=== PATIENT | female | born 1980 | race African-American/Black ===

== ENCOUNTER 2016-05-09 19:59 | Emergency (ER) | payer OTHER ==
[~2016-05-09] VITALS: Ht 172.7 cm; Wt 76.2 kg
[~2016-05-09 19:59] MED LIST: ALPRAZOLAM0.5 MG PO; BACTRIM,SEPT1 TABLET PO; CHILD ASPIRIN81 M1 PO; DIFLUCAN200 MG PO; ERYTHROMYC1 APPLICAT LEFT EYE; FLAGYL500 MG PO; FLEXERIL10 MG PO; HYDROCODON-ACE1 EAC7 PO; IBUPROFEN400 MG PO; IBUPROFEN800 MG PO; KEFLEX500 MG PO; LANTUS 10100 UNITS/ SC; LANTUS 3 M100 UNITS1 SC; LOVENOX40 MG/0.4 SC; METFORMIN HCL1000 MG PO; METHERGINE0.2 MG PO; MOTRIN400 MG PO; NAPROXEN500 MG PO; NORCO 5/3251 TABLET PO; NOVOLOG 10100 UNITS/ SC; NOVOLOG PE100 UNITS/ SC; PERCOCET 5/31 TABLET PO; TRAMADOL HCL50 MG PO; XANAX0.5 MG PO; ZOFRAN ODT8 MG PO
[2016-05-09 22:04] LABS: INTERNAL CONTROL VALID? YES
[2016-05-09] MEDS ORDERED: MOTRIN600 MG PO (22:19)
[2016-05-09 22:27] VITALS: BP 139/89
[2016-05-10 14:52] LABS: CHLAMYDIA TRACHOMATIS NEGATIVE; NEISSERIA GONORRHOEAE POSITIVE
== END 2016-05-09 22:28 | disposition home or self-care (01) ==
LOC: EME 19:59
PROVIDERS: Emergency Medicine
DX: Z04.41 Encounter for examination and observation following alleged adult rape (principal); M54.5 Low back pain; G89.29 Other chronic pain; E11.9 Type 2 diabetes mellitus without complications; Z79.4 Long term (current) use of insulin
CPT/HCPCS: 84703; 87491; 87591; 99281; 99285; J1885

== ENCOUNTER 2016-07-03 11:45 | Observation (INO) | payer OTHER ==
[~2016-07-03] VITALS: Ht 172.7 cm; Wt 69.1 kg
[~2016-07-03 11:45] MED LIST changes: +MOTRIN600 MG PO
[2016-07-03 13:08] LABS: EOSINOPHIL (%) 1.9 % (0-5); EOSINOPHIL COUNT 0.1 K/uL (0-0.3); HEMATOCRIT 37.2 % (36.0-46.0); LYMPHOCYTE COUNT 2.5 K/uL (1.0-2.8); MCH 30.8 PG (29.0-34.0); MCHC 36.6 G/DL (30.0-36.0); MCV 84.4 FL (83-99); MEAN PLAT.VOLUME 11.3 uM^3 (9.5-12.4); MONOCYTE (%) 7.6 % (3-12); MONOCYTE COUNT 0.4 K/uL (0-0.8); NEUTROPHIL (%) 46.2 % (45-76); NEUTROPHIL COUNT 2.7 K/uL (1.8-6.4); PLATELET COUNT 269 K/uL (156-360); RBC DIS.WIDTH-CV 11.5 % (11.8-14.6); RBC DIS.WIDTH-SD 34.5 % (39-53); RED BLOOD COUNT 4.41 M/uL (3.80-5.20); WHITE BLOOD COUNT 5.8 K/uL (4.1-10.2)
[2016-07-03 13:11] LABS: CARBON DIOXIDE (BICARBONATE) 37.1 MEQ/L (20-31)
[2016-07-03 14:42] LABS: CHLORIDE 90 mEq/L (99-109); POTASSIUM 4.7 mEq/L (3.7-5.4); SODIUM 128 mEq/L (136-147)
[2016-07-03 14:44] LABS: GLUCOSE 754 mg/dL (70-99)
[2016-07-03 14:45] LABS: ANION GAP 8 MEQ/L (2-14)
[2016-07-03 14:48] LABS: GFR ESTIMATE (CALCULATED) > 59 mL/min/; UREA NITROGEN (BUN) 9 mg/dL (9-23)
[2016-07-03] MEDS ORDERED: PERCOCET 5/31 TABLET PO (15:59)
[2016-07-03] MEDS ORDERED: HAIR-SKIN-NAIL1 EACH PO (16:00)
[2016-07-03 19:00] VITALS: BP 121/78
[2016-07-03 19:29] VITALS: BP 126/69
[2016-07-03 19:51] LABS: Estimated Average Glucose 430 mg/dL (70-123)
[2016-07-03 21:46] LABS: HEMOGLOBIN A1c (GLYCOHEMOGLOB) 16.6 % HGB (Below 5.7)
[2016-07-03 23:37] LABS: ADD MIUA? YES; BILIRUBIN NEGATIVE; BLOOD NEGATIVE; COLOR YELLOW ((YELLOW)); GLUCOSE (STRIP) >=500; KETONES NEGATIVE; LEUKOCYTES TRACE; NITRITE POSITIVE; PROTEIN (STRIP) NEGATIVE; SPECIFIC GRAVITY 1.031 (1.000-1.030); UROBILINOGEN 0.2 MG/DL (0.2-1.0)
[2016-07-03 23:46] LABS: BACTERIA 2+ /HPF; EPITHELIAL CELLS RARE /HPF; MUCUS TRACE /LPF; RED BLOOD CELLS TNTC /HPF (0-5); UCUL ADDED? NO; WHITE BLOOD CELLS 0-5 /HPF (0-5)
[2016-07-04] VITALS: BP 126/74
[2016-07-04 00:35] LABS: CARBON DIOXIDE (BICARBONATE) 31.9 MEQ/L (20-31)
[2016-07-04 00:42] LABS: CHLORIDE 94 mEq/L (99-109); POTASSIUM 4.1 mEq/L (3.7-5.4); SODIUM 127 mEq/L (136-147)
[2016-07-04 00:43] LABS: MAGNESIUM 1.7 mg/dL (1.3-2.7)
[2016-07-04 00:46] LABS: ANION GAP 6 MEQ/L (2-14)
[2016-07-04 00:47] LABS: TOTAL BILIRUBIN 0.2 mg/dL (0.0-1.0)
[2016-07-04 00:48] LABS: ALKALINE PHOSPHATASE 89 IU/L (3-129)
[2016-07-04 00:49] LABS: GFR ESTIMATE (CALCULATED) > 59 mL/min/; GLUCOSE 709 mg/dL (70-99)
[2016-07-04 00:50] LABS: UREA NITROGEN (BUN) 10 mg/dL (9-23)
[2016-07-04 03:56] VITALS: BP 118/66
[2016-07-04 06:15] LABS: POINT-OF-CARE METER ID UU13113831
[2016-07-04 06:33] LABS: ANION GAP 5 MEQ/L (2-14); CHLORIDE 102 MEQ/L (99-109); POTASSIUM 3.8 MEQ/L (3.7-5.4); SAMPLE HEMOLYSIS CHECK 0; SAMPLE ICTERIC CHECK 0; SAMPLE LIPEMIA CHECK 0; UREA NITROGEN (BUN) 9 mg/dL (9-23)
[2016-07-04 06:40] LABS: GFR ESTIMATE (CALCULATED) > 59 mL/min/; GLUCOSE 101 mg/dL (70-99); SODIUM 135 MEQ/L (136-147)
[2016-07-04 07:14] LABS: HEMATOCRIT 50.4 % (36.0-46.0); MCH 29.9 PG (29.0-34.0); MCHC 33.9 G/DL (30.0-36.0); MCV 88.1 FL (83-99); RBC DIS.WIDTH-SD 37.9 % (39-53); WHITE BLOOD COUNT 4.9 K/uL (4.1-10.2)
[2016-07-04 07:17] VITALS: BP 112/61
[2016-07-04 07:17] LABS: RED BLOOD COUNT 5.72 M/uL (3.80-5.20)
[2016-07-04 07:56] LABS: PLATELET COUNT UNABLE TO REPORT K/uL (156-360)
[2016-07-04 08:53] LABS: EOSINOPHIL (%) 2.4 % (0-5); EOSINOPHIL COUNT 0.2 K/uL (0-0.3); HEMATOCRIT 32.5 % (36.0-46.0); LYMPHOCYTE COUNT 3.3 K/uL (1.0-2.8); MCH 30.8 PG (29.0-34.0); MCHC 35.7 G/DL (30.0-36.0); MCV 86.2 FL (83-99); MONOCYTE (%) 7.2 % (3-12); MONOCYTE COUNT 0.5 K/uL (0-0.8); NEUTROPHIL (%) 36.9 % (45-76); NEUTROPHIL COUNT 2.3 K/uL (1.8-6.4); RBC DIS.WIDTH-CV 11.8 % (11.8-14.6); RBC DIS.WIDTH-SD 36.7 % (39-53); WHITE BLOOD COUNT 6.3 K/uL (4.1-10.2)
[2016-07-04 09:02] LABS: RED BLOOD COUNT 3.77 M/uL (3.80-5.20)
[2016-07-04 09:26] LABS: PLATELET COUNT UNABLE TO REPORT K/uL (156-360); USER ID TLW
[2016-07-04 09:59] LABS: POINT-OF-CARE METER ID UU13113702
[2016-07-04 09:59] LABS: POINT-OF-CARE METER ID UU13113702
[2016-07-04 10:01] LABS: POINT-OF-CARE METER ID UU13113831
[2016-07-04 10:14] LABS: POINT-OF-CARE METER ID UU13113831
[2016-07-04 12:44] LABS: POINT-OF-CARE METER ID UU13113700
[2016-07-04 15:25] VITALS: BP 98/60
[2016-07-04] MEDS ORDERED: LYRICA100 MG PO (15:27)
[2016-07-04] MEDS ORDERED: LEVEMIR100 UNIT/2 SC (15:29)
[2016-07-04] MEDS ORDERED: NOVOLOG 10100 UNITS/ SC ×2 (15:29→15:30)
[2016-07-04] MEDS ORDERED: LEVEMIR FL100 UNIT/1 SC (16:43)
[2016-07-04] MEDS ORDERED: NOVOLOG PE100 UNITS/ SC (16:44)
== END 2016-07-04 16:55 | disposition home or self-care (01) ==
LOC: EME 11:45 → EDOF 15:36 → 5WEST 15:36 → EDOF 15:36 → 5WEST 19:19
PROVIDERS: Emergency Medicine; Physician Assistant; Physician Assistant Medical; Student in an Organized Health Care Education/Training Program
DX: E10.43 Type 1 diabetes mellitus with diabetic autonomic (poly)neuropathy (principal); E10.65 Type 1 diabetes mellitus with hyperglycemia; M79.671 Pain in right foot; M79.672 Pain in left foot; Z91.19 Patient's noncompliance with other medical treatment and regimen; I10 Essential (primary) hypertension; F31.9 Bipolar disorder, unspecified; G89.29 Other chronic pain; G43.909 Migraine, unspecified, not intractable, without status migrainosus; E87.1 Hypo-osmolality and hyponatremia; E86.0 Dehydration
CPT/HCPCS: 73630; 80048; 80053; 81003; 82010; 82803; 82948; 83036; 83735; 85025; 85027; 99281; 99285; G0378; J1815; J2270; J3480; J7030

== ENCOUNTER 2016-08-25 15:47 | Emergency (ER) | payer OTHER ==
[~2016-08-25] VITALS: Ht 172.7 cm; Wt 65.5 kg
[~2016-08-25 15:47] MED LIST changes: +HAIR-SKIN-NAIL1 EACH PO; +LEVEMIR FL100 UNIT/1 SC; +LEVEMIR100 UNIT/2 SC; +LYRICA100 MG PO
[2016-08-25 16:57] LABS: EOSINOPHIL (%) 1.1 % (0-5); EOSINOPHIL COUNT 0.1 K/uL (0-0.3); HEMATOCRIT 40.2 % (36.0-46.0); IMMATURE GRANULOCYTE (%) 0.2 % (0.0-0.7); INSTRUMENT ABS NEUTROPHIL CT 5.1 K/uL; LYMPHOCYTE COUNT 2.5 K/uL (1.0-2.8); MCH 30.5 PG (29.0-34.0); MCHC 34.8 G/DL (30.0-36.0); MCV 87.6 FL (83-99); MEAN PLAT.VOLUME 10.7 uM^3 (9.5-12.4); MONOCYTE (%) 3.5 % (3-12); MONOCYTE COUNT 0.3 K/uL (0-0.8); NEUTROPHIL COUNT 5.1 K/uL (1.8-6.4); PLATELET COUNT 306 K/uL (156-360); RBC DIS.WIDTH-CV 11.1 % (11.8-14.6); RBC DIS.WIDTH-SD 35.6 % (39-53); RED BLOOD COUNT 4.59 M/uL (3.80-5.20)
[2016-08-25 17:11] LABS: CHLORIDE 94 mEq/L (99-109); POTASSIUM 3.9 mEq/L (3.7-5.4); SODIUM 129 mEq/L (136-147)
[2016-08-25 17:14] LABS: ANION GAP 8 MEQ/L (2-14)
[2016-08-25 17:16] LABS: GFR ESTIMATE (CALCULATED) > 59 mL/min/
[2016-08-25 17:17] LABS: UREA NITROGEN (BUN) 5 mg/dL (9-23)
[2016-08-25 17:25] LABS: QUANTITATIVE HCG < 4.0 MIU/ML
[2016-08-25 17:30] LABS: GLUCOSE 617 mg/dL (70-99)
[2016-08-25] MEDS ORDERED: LANTUS 10100 UNITS/ SC (18:19)
[2016-08-25] MEDS ORDERED: HUMULIN R100 UNITS/ SC (18:19)
[2016-08-25] MEDS ORDERED: ZITHROMAX Z-PA250 MG PO (18:19)
[2016-08-25 18:33] VITALS: BP 127/83
[2016-08-26 11:40] LABS: POINT-OF-CARE METER ID UU13113702
== END 2016-08-25 18:35 | disposition home or self-care (01) ==
LOC: EME 15:47
PROVIDERS: Emergency Medicine
DX: E11.65 Type 2 diabetes mellitus with hyperglycemia (principal); T38.3X6A Underdosing of insulin and oral hypoglycemic [antidiabetic] drugs, initial encounter; J02.9 Acute pharyngitis, unspecified; I10 Essential (primary) hypertension; Z91.128 Patient's intentional underdosing of medication regimen for other reason; Z88.0 Allergy status to penicillin; Z79.4 Long term (current) use of insulin
CPT/HCPCS: 80048; 82948; 84702; 85025; 99281; 99284; J7030

== ENCOUNTER 2016-09-29 10:00 | Inpatient (IN) | payer OTHER ==
[~2016-09-29] VITALS: Ht 165.1 cm; Wt 57.8 kg
[~2016-09-29 10:00] MED LIST changes: +HUMULIN R100 UNITS/ SC; +ZITHROMAX Z-PA250 MG PO
[2016-09-29 10:48] LABS: EOSINOPHIL (%) 0 % (0-5); HEMATOCRIT 44.6 % (36.0-46.0); IMMATURE GRANULOCYTE (%) 0.9 % (0.0-0.7); IMMATURE GRANULOCYTE COUNT 0.1 K/uL; INSTRUMENT ABS NEUTROPHIL CT 12.4 K/uL; LYMPHOCYTE COUNT 0.9 K/uL (1.0-2.8); MCH 30.8 PG (29.0-34.0); MCHC 33.2 G/DL (30.0-36.0); MCV 92.7 FL (83-99); MEAN PLAT.VOLUME 10.9 uM^3 (9.5-12.4); MONOCYTE (%) 3.3 % (3-12); MONOCYTE COUNT 0.5 K/uL (0-0.8); NEUTROPHIL (%) 89.4 % (45-76); NEUTROPHIL COUNT 12.4 K/uL (1.8-6.4); PLATELET COUNT 323 K/uL (156-360); RBC DIS.WIDTH-CV 11.8 % (11.8-14.6); RBC DIS.WIDTH-SD 40.1 % (39-53); RED BLOOD COUNT 4.81 M/uL (3.80-5.20); WHITE BLOOD COUNT 13.9 K/uL (4.1-10.2)
[2016-09-29 11:03] LABS: CHLORIDE 91 mEq/L (99-109); SODIUM 130 mEq/L (136-147)
[2016-09-29 11:06] LABS: ANION GAP 19 MEQ/L (2-14)
[2016-09-29 11:09] LABS: UREA NITROGEN (BUN) 13 mg/dL (9-23)
[2016-09-29 11:10] LABS: GLUCOSE 816 mg/dL (70-99)
[2016-09-29 11:11] LABS: CARBON DIOXIDE (BICARBONATE) 26.8 MEQ/L (20-31)
[2016-09-29 11:11] LABS: TROP-I INTERPRETATION NEGATIVE; TROPONIN-I < 0.01 ng/mL (0.0-0.30)
[2016-09-29 11:16] LABS: QUANTITATIVE HCG < 4.0 MIU/ML
[2016-09-29 11:25] LABS: GFR ESTIMATE (CALCULATED) 51 mL/min/
[2016-09-29 11:30] LABS: SALICYLATE < 5.0 MG/DL (15-30)
[2016-09-29 14:27] LABS: CHLORIDE 106 mEq/L (99-109); GLUCOSE 306 mg/dL (70-99); POTASSIUM 3.5 mEq/L (3.7-5.4); SODIUM 140 mEq/L (136-147)
[2016-09-29 14:28] LABS: POINT-OF-CARE METER ID UU13113702
[2016-09-29 14:28] LABS: ANION GAP 9 MEQ/L (2-14)
[2016-09-29 14:30] LABS: GFR ESTIMATE (CALCULATED) > 59 mL/min/
[2016-09-29 14:31] LABS: UREA NITROGEN (BUN) 14 mg/dL (9-23)
[2016-09-29 15:01] LABS: POINT-OF-CARE METER ID UU13113702
[2016-09-29 16:08] LABS: BASE EXCESS 1.1 mEq/L (-3 to +3); BICARBONATE 27.1 mEq/L (22-26); CARBOXY HGB 2.7 % (0-5); COMMENTS - BLOOD GASES +C; FI02 21 %; METHEMOGLOBIN 1.1 % (0-1.5); PCO2 48 mm Hg (35-45); PO2 87 mm Hg (80-100); SITE RB; TOTAL RESP RATE 18 resp/min; pH 7.36 (7.35-7.45)
[2016-09-29] MEDS ORDERED: NOVOLOG 10100 UNITS/ SC ×2 (16:19→16:21)
[2016-09-29] MEDS ORDERED: LANTUS 10100 UNITS/ SC (16:20)
[2016-09-29] MEDS ORDERED: PERCOCET 5/31 TABLET PO (16:22)
[2016-09-29 16:25] LABS: POINT-OF-CARE METER ID UU13113702
[2016-09-29] MEDS ORDERED: SEROQUEL300 MG PO (16:28)
[2016-09-29 18:50] VITALS: BP 107/61
[2016-09-29 19:46] LABS: TROP-I INTERPRETATION NEGATIVE; TROPONIN-I 0.09 ng/mL (0.0-0.30)
[2016-09-29 20:00] VITALS: BP 108/64
[2016-09-29 21:07] LABS: POINT-OF-CARE METER ID UU13113831
[2016-09-29 23:42] VITALS: BP 90/54
[2016-09-30 03:06] VITALS: BP 90/56
[2016-09-30 03:12] LABS: TROP-I INTERPRETATION NEGATIVE; TROPONIN-I 0.09 ng/mL (0.0-0.30)
[2016-09-30 07:22] VITALS: BP 111/61
[2016-09-30 07:26] LABS: MCH 30.8 PG (29.0-34.0); MCHC 34.9 G/DL (30.0-36.0); MEAN PLAT.VOLUME 10.4 uM^3 (9.5-12.4); PLATELET COUNT 335 K/uL (156-360); RBC DIS.WIDTH-CV 11.6 % (11.8-14.6); RBC DIS.WIDTH-SD 37.2 % (39-53); RED BLOOD COUNT 3.96 M/uL (3.80-5.20); WHITE BLOOD COUNT 9.2 K/uL (4.1-10.2)
[2016-09-30 07:39] LABS: MCV 88.4 FL (83-99)
[2016-09-30 08:05] LABS: ANION GAP 7 MEQ/L (2-14); CHLORIDE 106 MEQ/L (99-109); GFR ESTIMATE (CALCULATED) > 59 mL/min/; POTASSIUM 3.2 MEQ/L (3.7-5.4); SAMPLE HEMOLYSIS CHECK 0; SAMPLE ICTERIC CHECK 0; SAMPLE LIPEMIA CHECK 0; SODIUM 141 MEQ/L (136-147); UREA NITROGEN (BUN) 9 mg/dL (9-23)
[2016-09-30 08:08] LABS: GLUCOSE 35 mg/dL (70-99)
[2016-09-30 08:35] LABS: Estimated Average Glucose 418 mg/dL (70-123)
[2016-09-30 08:36] LABS: HEMOGLOBIN A1c (GLYCOHEMOGLOB) 16.2 % HGB (Below 5.7)
[2016-09-30 08:59] LABS: POINT-OF-CARE METER ID UU14162513
[2016-09-30 11:32] LABS: GLUCOSE 95 mg/dL (70-99)
[2016-09-30 11:36] VITALS: BP 91/51
[2016-09-30 12:04] LABS: POINT-OF-CARE METER ID UU14162513
[2016-09-30 12:36] LABS: POINT-OF-CARE METER ID UU13113700
[2016-09-30 14:49] LABS: POINT-OF-CARE METER ID UU13113700
[2016-09-30 15:25] VITALS: BP 104/65
[2016-09-30 16:05] LABS: POINT-OF-CARE METER ID UU13113700
[2016-09-30 16:07] LABS: POINT-OF-CARE METER ID UU14162513
[2016-09-30 16:18] LABS: POINT-OF-CARE METER ID UU13113702
[2016-09-30 16:18] LABS: POINT-OF-CARE METER ID UU13113702
[2016-09-30 17:33] LABS: POINT-OF-CARE METER ID UU14162513
[2016-09-30 19:52] VITALS: BP 113/64
[2016-09-30 21:45] LABS: POINT-OF-CARE METER ID UU14162513
[2016-09-30 23:48] VITALS: BP 115/60
[2016-10-01 03:11] LABS: POINT-OF-CARE METER ID UU14162513
[2016-10-01 04:54] VITALS: BP 106/53
[2016-10-01 05:26] LABS: POINT-OF-CARE METER ID UU13113700
[2016-10-01 05:26] LABS: POINT-OF-CARE METER ID UU13113700
[2016-10-01 05:40] LABS: GLUCOSE 51 mg/dL (70-99)
[2016-10-01 06:08] LABS: POINT-OF-CARE METER ID UU13113700
[2016-10-01 07:29] VITALS: BP 98/54
[2016-10-01 09:41] LABS: EOSINOPHIL (%) 1.8 % (0-5); EOSINOPHIL COUNT 0.1 K/uL (0-0.3); IMMATURE GRANULOCYTE (%) 0.3 % (0.0-0.7); INSTRUMENT ABS NEUTROPHIL CT 2.5 K/uL; LYMPHOCYTE COUNT 3.7 K/uL (1.0-2.8); MCH 31.6 PG (29.0-34.0); MCHC 34.1 G/DL (30.0-36.0); MEAN PLAT.VOLUME 10.9 uM^3 (9.5-12.4); MONOCYTE (%) 6.2 % (3-12); MONOCYTE COUNT 0.4 K/uL (0-0.8); NEUTROPHIL (%) 37.3 % (45-76); NEUTROPHIL COUNT 2.5 K/uL (1.8-6.4); PLATELET COUNT 276 K/uL (156-360); RBC DIS.WIDTH-CV 11.9 % (11.8-14.6); RBC DIS.WIDTH-SD 40.2 % (39-53); RED BLOOD COUNT 3.99 M/uL (3.80-5.20); WHITE BLOOD COUNT 6.8 K/uL (4.1-10.2)
[2016-10-01 09:42] LABS: MCV 92.7 FL (83-99)
[2016-10-01 09:55] LABS: CHLORIDE 105 mEq/L (99-109); POTASSIUM 3.6 mEq/L (3.7-5.4); SODIUM 136 mEq/L (136-147)
[2016-10-01 09:56] LABS: MAGNESIUM 1.6 mg/dL (1.3-2.7)
[2016-10-01 09:58] LABS: ANION GAP 6 MEQ/L (2-14)
[2016-10-01 10:01] LABS: GFR ESTIMATE (CALCULATED) > 59 mL/min/; UREA NITROGEN (BUN) 9 mg/dL (9-23)
[2016-10-01 11:21] LABS: POINT-OF-CARE METER ID UU13113700
[2016-10-01 11:49] VITALS: BP 103/67
[2016-10-01 14:14] LABS: POINT-OF-CARE METER ID UU13113700
[2016-10-01 15:37] VITALS: BP 110/60
[2016-10-01 17:20] LABS: POINT-OF-CARE METER ID UU13113700
[2016-10-01 20:19] LABS: POINT-OF-CARE METER ID UU13113700
[2016-10-01 23:41] LABS: POINT-OF-CARE METER ID UU13113700
[2016-10-02 00:13] VITALS: BP 115/59
[2016-10-02 02:34] LABS: POINT-OF-CARE METER ID UU13113700
[2016-10-02 04:30] VITALS: BP 114/67
[2016-10-02 06:20] LABS: POINT-OF-CARE METER ID UU13113700
[2016-10-02 07:19] VITALS: BP 109/73
[2016-10-02] MEDS ORDERED: NOVOLOG 10100 UNITS/ SC (09:04)
[2016-10-02] MEDS ORDERED: LANTUS 10100 UNITS/ SC (09:04)
== END 2016-10-02 10:31 | disposition home or self-care (01) | DRG 639 ==
LOC: EME 10:00 → EDOF 13:31 → 5WEST 13:31 → EDOF 15:55 → 5WEST 18:06
PROVIDERS: Emergency Medicine; Internal Medicine; Internal Medicine Critical Care Medicine; Nurse Practitioner Adult Health; Physician Assistant Medical
DX: E10.10 Type 1 diabetes mellitus with ketoacidosis without coma (principal); I10 Essential (primary) hypertension; F11.10 Opioid abuse, uncomplicated; F31.9 Bipolar disorder, unspecified; G89.29 Other chronic pain; Z91.14 Patient's other noncompliance with medication regimen; Z79.4 Long term (current) use of insulin; Z88.0 Allergy status to penicillin
CPT/HCPCS: 36600; 80048; 80048 91; 81003; 82010; 82803; 82947 91; 82948; 83036; 83735; 84484; 84702; 84999; 85025; 85027; 93005; 99281; 99285; G0378; G0480; J1650; J1815; J2310; J7030; J7050

== ENCOUNTER 2017-01-14 12:40 | Observation (INO) | payer OTHER ==
[~2017-01-14] VITALS: Ht 172.7 cm; Wt 61.0 kg
[~2017-01-14 12:40] MED LIST changes: +SEROQUEL300 MG PO
[2017-01-14 13:21] LABS: EOSINOPHIL (%) 1.8 % (0-5); EOSINOPHIL COUNT 0.1 K/uL (0-0.3); IMMATURE GRANULOCYTE (%) 0.2 % (0.0-0.7); INSTRUMENT ABS NEUTROPHIL CT 2.3 K/uL; LYMPHOCYTE COUNT 2.4 K/uL (1.0-2.8); MCHC 35.3 G/DL (30.0-36.0); MCV 85.1 FL (83-99); MEAN PLAT.VOLUME 10.2 uM^3 (9.5-12.4); MONOCYTE (%) 5.3 % (3-12); MONOCYTE COUNT 0.3 K/uL (0-0.8); NEUTROPHIL (%) 44.8 % (45-76); NEUTROPHIL COUNT 2.3 K/uL (1.8-6.4); PLATELET COUNT 265 K/uL (156-360); RBC DIS.WIDTH-CV 11.6 % (11.8-14.6); RBC DIS.WIDTH-SD 35.6 % (39-53); RED BLOOD COUNT 4.23 M/uL (3.80-5.20); WHITE BLOOD COUNT 5.1 K/uL (4.1-10.2)
[2017-01-14 13:25] LABS: CARBON DIOXIDE (BICARBONATE) 33.6 MEQ/L (20-31)
[2017-01-14 13:31] LABS: CHLORIDE 95 mEq/L (99-109); SODIUM 131 mEq/L (136-147)
[2017-01-14 13:34] LABS: ANION GAP 10 MEQ/L (2-14)
[2017-01-14 13:36] LABS: GFR ESTIMATE (CALCULATED) > 59 mL/min/
[2017-01-14 13:37] LABS: UREA NITROGEN (BUN) 7 mg/dL (9-23)
[2017-01-14 13:46] LABS: QUANTITATIVE HCG < 4.0 MIU/ML
[2017-01-14 13:50] LABS: GLUCOSE 749 mg/dL (70-99)
[2017-01-14 14:05] LABS: SAMPLE HEMOLYSIS CHECK 0; SAMPLE ICTERIC CHECK 0; SAMPLE LIPEMIA CHECK 0
[2017-01-14] MEDS ORDERED: LANTUS 10100 UNITS/ SC (14:32)
[2017-01-14] MEDS ORDERED: XANAX0.5 MG PO (14:33)
[2017-01-14] MEDS ORDERED: NOVOLOG 10100 UNITS/ SC (14:33)
[2017-01-14] MEDS ORDERED: ULTRAM50 MG PO (14:34)
[2017-01-14] MEDS ORDERED: LYRICA50 MG PO (14:37)
[2017-01-14 15:10] LABS: POINT-OF-CARE METER ID UU14100415
[2017-01-14 16:29] LABS: POINT-OF-CARE METER ID UU14100415
[2017-01-14 17:49] LABS: ADD MIUA? NO; BILIRUBIN NEGATIVE; BLOOD NEGATIVE; COLOR STRAW ((YELLOW)); GLUCOSE (STRIP) >=500; KETONES NEGATIVE; LEUKOCYTES NEGATIVE; NITRITE NEGATIVE; PROTEIN (STRIP) 30; SPECIFIC GRAVITY 1.033 (1.000-1.030); UROBILINOGEN 0.2 MG/DL (0.2-1.0)
[2017-01-14 18:02] VITALS: BP 137/75
[2017-01-14 21:03] VITALS: BP 134/69
[2017-01-14 21:12] LABS: POINT-OF-CARE METER ID UU14100415
[2017-01-14 21:12] LABS: POINT-OF-CARE METER ID UU14100415
[2017-01-14 21:13] LABS: POINT-OF-CARE METER ID UU14162513
[2017-01-14 23:36] LABS: POINT-OF-CARE METER ID UU14162513
[2017-01-15 00:12] VITALS: BP 105/60
[2017-01-15 04:00] VITALS: BP 107/58
[2017-01-15 05:49] LABS: HEMATOCRIT 32.3 % (36.0-46.0); MCH 30.2 PG (29.0-34.0); MCHC 35.3 G/DL (30.0-36.0); MCV 85.7 FL (83-99); MEAN PLAT.VOLUME 10.3 uM^3 (9.5-12.4); PLATELET COUNT 254 K/uL (156-360); RBC DIS.WIDTH-CV 11.8 % (11.8-14.6); RBC DIS.WIDTH-SD 36.9 % (39-53); RED BLOOD COUNT 3.77 M/uL (3.80-5.20); WHITE BLOOD COUNT 6.3 K/uL (4.1-10.2)
[2017-01-15 06:14] LABS: ANION GAP 5 MEQ/L (2-14); GFR ESTIMATE (CALCULATED) > 59 mL/min/; SAMPLE HEMOLYSIS CHECK 0; SAMPLE ICTERIC CHECK 0; SAMPLE LIPEMIA CHECK 0; UREA NITROGEN (BUN) 10 mg/dL (9-23)
[2017-01-15 06:16] LABS: CHLORIDE 109 MEQ/L (99-109); GLUCOSE 60 mg/dL (70-99); POTASSIUM 3.9 MEQ/L (3.7-5.4); SODIUM 141 MEQ/L (136-147)
[2017-01-15 06:52] LABS: POINT-OF-CARE METER ID UU14162513
[2017-01-15 07:35] LABS: POINT-OF-CARE METER ID UU14162513
[2017-01-15 08:35] VITALS: BP 101/61
[2017-01-15 10:13] LABS: POINT-OF-CARE METER ID UU14162513
[2017-01-15 11:43] LABS: POINT-OF-CARE METER ID UU14162513
[2017-01-15 12:21] VITALS: BP 102/63
[2017-01-15 12:24] LABS: POINT-OF-CARE METER ID UU13113700
[2017-01-15 12:58] LABS: AMPHETAMINES QUANT VALUE 0 NG/ML; BARBITUATES QUANT VALUE 0 NG/ML; BENZODIAZEPINES QUANT VALUE 0 NG/ML; BENZODIAZEPINES, URINE SCREEN Negative (200 ng/mL); MARIJUANA QUANT VALUE 0 NG/ML; OPIATES QUANTITATIVE VALUE 0 NG/ML; PHENCYCLIDINE QUANT VALUE 0 NG/ML
[2017-01-15 16:05] VITALS: BP 114/75
[2017-01-15 17:41] LABS: POINT-OF-CARE METER ID UU13113700
[2017-01-15 19:25] VITALS: BP 116/71
[2017-01-16 00:08] VITALS: BP 123/86
[2017-01-16 02:18] LABS: POINT-OF-CARE METER ID UU14162513
[2017-01-16 04:02] VITALS: BP 128/74
[2017-01-16 06:19] LABS: EOSINOPHIL (%) 1.4 % (0-5); EOSINOPHIL COUNT 0.1 K/uL (0-0.3); HEMATOCRIT 34.7 % (36.0-46.0); IMMATURE GRANULOCYTE (%) 0.3 % (0.0-0.7); INSTRUMENT ABS NEUTROPHIL CT 4.2 K/uL; LYMPHOCYTE COUNT 3.1 K/uL (1.0-2.8); MCH 29.4 PG (29.0-34.0); MCHC 33.4 G/DL (30.0-36.0); MCV 88.1 FL (83-99); MEAN PLAT.VOLUME 10.7 uM^3 (9.5-12.4); MONOCYTE (%) 5.2 % (3-12); MONOCYTE COUNT 0.4 K/uL (0-0.8); NEUTROPHIL (%) 53.6 % (45-76); NEUTROPHIL COUNT 4.2 K/uL (1.8-6.4); PLATELET COUNT 250 K/uL (156-360); RBC DIS.WIDTH-CV 11.8 % (11.8-14.6); RBC DIS.WIDTH-SD 38.3 % (39-53); RED BLOOD COUNT 3.94 M/uL (3.80-5.20); WHITE BLOOD COUNT 7.8 K/uL (4.1-10.2)
[2017-01-16 06:20] LABS: POINT-OF-CARE METER ID UU14162513
[2017-01-16 06:47] LABS: ANION GAP 5 MEQ/L (2-14); CHLORIDE 103 MEQ/L (99-109); GFR ESTIMATE (CALCULATED) > 59 mL/min/; SAMPLE HEMOLYSIS CHECK 0; SAMPLE ICTERIC CHECK 0; SAMPLE LIPEMIA CHECK 0; SODIUM 137 MEQ/L (136-147); UREA NITROGEN (BUN) 12 mg/dL (9-23)
[2017-01-16 06:55] LABS: ALKALINE PHOSPHATASE 52 IU/L (3-129); GLUCOSE 151 mg/dL (70-99); TOTAL BILIRUBIN 0.2 MG/DL (0.0-1.0)
[2017-01-16 07:54] LABS: POINT-OF-CARE METER ID UU14162513
[2017-01-16 08:16] LABS: POINT-OF-CARE METER ID UU14162513
[2017-01-16] MEDS ORDERED: LANTUS 10100 UNITS/ SC (08:35)
[2017-01-16] MEDS ORDERED: NOVOLOG 10100 UNITS/ SC (08:42)
[2017-01-16] MEDS ORDERED: GLUCOMETER MC (08:48)
[2017-01-16 08:50] VITALS: BP 123/80
[2017-01-16] MEDS ORDERED: ACCU-CHEK FAST1 EACH MC (08:51)
[2017-01-16] MEDS ORDERED: INSULIN SYRING1 EA53 MC (08:53)
== END 2017-01-16 10:55 | disposition home or self-care (01) ==
LOC: EME 12:40 → EDOF 14:10 → 5WEST 14:10 → EDOF 14:10 → ENRESERV 14:13 → 5WEST 17:53 → ENPENDDIS 01-16 → 5WEST 01-16 10:55
PROVIDERS: Emergency Medicine; Hospitalist
DX: E10.65 Type 1 diabetes mellitus with hyperglycemia (principal); Z91.128 Patient's intentional underdosing of medication regimen for other reason; T38.3X6A Underdosing of insulin and oral hypoglycemic [antidiabetic] drugs, initial encounter; E10.42 Type 1 diabetes mellitus with diabetic polyneuropathy; I10 Essential (primary) hypertension; K21.9 Gastro-esophageal reflux disease without esophagitis; M25.552 Pain in left hip; R26.2 Difficulty in walking, not elsewhere classified; Z88.0 Allergy status to penicillin
CPT/HCPCS: 76882; 80048; 80053; 80306 90; 81003; 82010; 82803; 82948; 84702; 85025; 85027; 99281; 99285; G0378; J1815; J3480; J7030; S0028

== ENCOUNTER 2017-08-30 08:11 | Emergency (ER) | payer OTHER ==
[~2017-08-30] VITALS: Ht 172.7 cm; Wt 66.3 kg
[~2017-08-30 08:11] MED LIST changes: +ACCU-CHEK FAST1 EACH MC; +GLUCOMETER MC; +INSULIN SYRING1 EA53 MC; +LYRICA50 MG PO; +ULTRAM50 MG PO
[2017-08-30 08:50] LABS: BASOPHIL (%) 0.3 % (0-1); EOSINOPHIL (%) 3.3 % (0-5); EOSINOPHIL COUNT 0.2 K/uL (0-0.3); HEMATOCRIT 33.3 % (36.0-46.0); IMMATURE GRANULOCYTE (%) 0.2 % (0.0-0.7); LYMPHOCYTE (%) 42.8 % (15-42); LYMPHOCYTE COUNT 2.6 K/uL (1.0-2.8); MCH 30.1 PG (29.0-34.0); MCV 91.2 FL (83-99); MONOCYTE COUNT 0.7 K/uL (0-0.8); NEUTROPHIL (%) 42.4 % (45-76); NEUTROPHIL COUNT 2.6 K/uL (1.8-6.4); PLATELET COUNT 304 K/uL (156-360); RBC DIS.WIDTH-CV 11.9 % (11.8-14.6); RBC DIS.WIDTH-SD 39.4 % (39-53); RED BLOOD COUNT 3.65 M/uL (3.80-5.20); WHITE BLOOD COUNT 6.1 K/uL (4.1-10.2)
[2017-08-30 08:56] LABS: INTER. NORMALIZED RATIO 0.9
[2017-08-30 08:58] LABS: D-DIMER ELISA < 150.00 ng/mLDDU (<230)
[2017-08-30 08:59] LABS: PTT 30.6 SEC (25-37)
[2017-08-30 09:00] LABS: CHLORIDE 104 mEq/L (99-109); SODIUM 139 mEq/L (136-147)
[2017-08-30 09:02] LABS: GLUCOSE 150 mg/dL (70-99)
[2017-08-30 09:06] LABS: CREATININE 0.7 mg/dL (0.6-1.3); GFR ESTIMATE (CALCULATED) > 59 mL/min/
[2017-08-30 09:07] LABS: UREA NITROGEN (BUN) 22 mg/dL (9-23)
[2017-08-30 09:10] LABS: TROP-I INTERPRETATION NEGATIVE; TROPONIN-I < 0.01 ng/mL (0.0-0.30)
[2017-08-30 11:32] LABS: APPEARANCE CLEAR ((CLEAR)); BILIRUBIN NEGATIVE; BLOOD MODERATE; COLOR YELLOW ((YELLOW)); GLUCOSE (STRIP) NEGATIVE; KETONES NEGATIVE; LEUKOCYTES NEGATIVE; NITRITE NEGATIVE; PROTEIN (STRIP) 100; SPECIFIC GRAVITY 1.015 (1.000-1.030); UROBILINOGEN 0.2 MG/DL (0.2-1.0)
[2017-08-30 11:36] LABS: BACTERIA RARE /HPF; EPITHELIAL CELLS RARE /HPF; MUCUS TRACE /LPF; RED BLOOD CELLS 15-20 /HPF (0-5); WHITE BLOOD CELLS 0-5 /HPF (0-5)
[2017-08-30 11:56] LABS: TROP-I INTERPRETATION NEGATIVE; TROPONIN-I < 0.01 ng/mL (0.0-0.30)
[2017-08-30 12:56] VITALS: BP 147/88
== END 2017-08-30 12:57 ==
LOC: EME 08:11
PROVIDERS: Emergency Medicine
DX: M79.89 Other specified soft tissue disorders (principal); R07.89 Other chest pain; I10 Essential (primary) hypertension; K21.9 Gastro-esophageal reflux disease without esophagitis; F31.9 Bipolar disorder, unspecified; F41.9 Anxiety disorder, unspecified; F32.9 Major depressive disorder, single episode, unspecified; Z88.0 Allergy status to penicillin
CPT/HCPCS: 71045; 80048; 81003; 84484; 85025; 85379; 85610; 85730; 93005; 93970; 99281; 99285